=== PATIENT | female | born 1960 | race Caucasian/White ===

== ENCOUNTER 2021-01-31 20:27 | Emergency (ER) | payer OTHER ==
[~2021-01-31] VITALS: Ht 165.1 cm; Wt 72.6 kg
--- NOTE | 2021-01-31 20:31 | NUR ---
PT BIBSELF C/O L UPPER EXT PAIN S/P TRIP AND FALL TODAY. DENIES KO. PT AAOX4. VITAL SIGNS STABLE. AMBULATORY WITH STEADY GAIT. PENDING MD MONREAL
--- NOTE | 2021-01-31 21:24 | NUR ---
PT STATES "I CAN TAKE NORCO FOR PAIN BUT NOT VICODIN"
--- NOTE | 2021-01-31 21:26 | NUR ---
RADIOLOGY AT BEDSIDE FOR XRAY
[2021-01-31] MEDS ORDERED: TRAM50TA2 PO (22:04)
--- NOTE | 2021-01-31 22:15 | NUR ---
Patient discharged to home in stable condition. Written and verbal after care instructions given. Patient verbalizes understanding of instruction. ambulatory with a steady gait
[2021-01-31 22:16] VITALS: BP 131/76
== END 2021-01-31 22:16 | disposition home or self-care (01) ==
LOC: ER 20:31
DX: S52.125A Nondisplaced fracture of head of left radius, initial encounter for closed fracture (principal); Z88.6 Allergy status to analgesic agent; Z79.899 Other long term (current) drug therapy; W01.0XXA Fall on same level from slipping, tripping and stumbling without subsequent striking against object, initial encounter; Y93.89 Activity, other specified; Y92.098 Other place in other non-institutional residence as the place of occurrence of the external cause; Y99.8 Other external cause status
CPT/HCPCS: 73060-TC; 73070-TC